=== PATIENT | female | born 1985 | race Two or more races ===

== ENCOUNTER 2023-10-10 01:10 | Emergency (ER) | payer OTHER ==
[~2023-10-10] VITALS: Ht 162.6 cm; Wt 60.0 kg
[2023-10-10 01:11] VITALS: BP 130/73; PULSE 68; RESP 18; TEMP 98.1
[2023-10-10] MEDS ORDERED: ESCI-8 PO (01:15)
[2023-10-10] MEDS: HYDROCODONE/ACETAMINOPHEN 5-325 MG TABLET PO ONE (02:01)
[2023-10-10] MEDS ORDERED: IBUP-1493 PO (02:24)
[2023-10-10] MEDS ORDERED: HYDR-4723 PO (02:24)
[2023-10-10] MEDS: KETOROLAC TROMETHAMINE 30 MG/ML VIAL IM ONE (02:44)
== END 2023-10-10 03:10 | disposition home or self-care (01) ==
LOC: EMS 01:13
DX: S83.91XA Sprain of unspecified site of right knee, initial encounter (principal); F32.A Depression, unspecified; X50.1XXA Overexertion from prolonged static or awkward postures, initial encounter; Y93.89 Activity, other specified; Y92.89 Other specified places as the place of occurrence of the external cause; Y99.0 Civilian activity done for income or pay
CPT/HCPCS: 99283; 73562; 96372; J1885